=== PATIENT | male | born 1965 | race Hispanic/Latino ===

== ENCOUNTER → 2017-12-02 | Day surgery (SDC) | payer OTHER ==
[~2017-12-02] MED LIST: ACETAMINOPHEN 1000 MG/100 ML IV ONE; AMLODIPINE BESY10 MG PO; ATORVASTATIN CA20 MG PO; BACITRACIN 50,000 UNIT VIAL ONE; BUPIVACAINE HCL 0.5% INJ 30 ML VIAL INJ ONE; CEFAZOLIN SOD 2 GM/D5W 50ML 50 ML IV ONE; CYCLOBENZAPRINE10 MG PO; DEXAMETHASONE SOD PHOS INJ 4 MG/ML VIAL ONE; FENTANYL CITRATE/PF 100MCG/2 ML INJ ONE; KETOROLAC TROMETHAMINE 30 MG/ML VIAL ONE; LIDOCAINE HCL 2% LOCAL INJ 5 ML SDV VIAL INJ ONE; LORAZEPAM1 MG PO; MIDAZOLAM HCL 2 MG/2 ML VIAL ONE; ONDANSETRON HCL INJ 2 MG/ML VIAL ONE; PROPOFOL IV EMULSION 10 MG/ML 20 ML VIAL ONE; SEVOFLURANE INHAL SOLN 250 ML PEN BTL ONE
--- NOTE | 2017-12-04 12:06 | Operative Report ---
DATE OF PROCEDURE: December 02, 2017 PREOPERATIVE DIAGNOSIS: Right ankle Maisonneuve fracture. POSTOPERATIVE DIAGNOSIS: Right ankle Maisonneuve fracture. OPERATION/PROCEDURE PERFORMED: 1. Open reduction and internal fixation of a right medial malleolus fracture. 2. Closed reduction of the right syndesmosis. 3. Screw stabilization of right syndesmosis injury. QUALITY IMPROVEMENT COORDINATOR (RN): None. ANESTHESIA: General endotracheal intubation anesthesia. IV FLUIDS: Per the anesthesia record. BRIEF DESCRIPTION OF THE PATIENT'S OPERATIVE PROCEDURE: Mr. Patel was taken to the operating room and placed in supine position on the operating table. Following induction of general anesthesia as well as endotracheal intubation the patient's right lower extremity was examined under anesthesia. He was noted to have bruising and swelling involving the ankle joint. Fluoroscopic evaluation of the ankle joint demonstrated a displaced medial malleolus fracture. There was disruption of the ankle mortis and widening of the syndesmosis. The patient's lower extremity was prepped and draped in standard surgical fashion. The case was begun by creating incision over the medial aspect of the ankle joint. This incision was carried through the skin only. Blunt dissection was used through a deepened incision to the level of the medial malleolus. Saphenous vein was identified and protected with retraction. The fracture site was identified and cleaned. The fracture fragment was found to be quite small. The fracture was reduced and held in place with a fracture reduction clamp and a single 4.0 cannulated screw that was inserted from distal to proximal transfixing the fracture in its reduced position and providing compression across the fracture site. A window was made in the anterior capsule. Examination of the medial clear space demonstrated no penetration of the screw into the joint. There was no injury to the talus. The wound was copiously irrigated and closed in a multilayer fashion. Attention was then turned to the syndesmosis injury. The fibula was identified laterally and a Lamont was used to localize the tibial plafond was using fluoroscopy. An incision was then created over the fibula. A tenaculum clamp was used to reduce the syndesmosis and this was achieved while the foot was held in neutral dorsiflexion. The drill was used to create a channel for the implant and a single fully threaded cannulated screw was inserted from lateral to medial through the fibula into the tibia by compressing the syndesmosis compressing the ankle joint at the level of the syndesmosis. This resulted in narrowing of the ankle mortise and reestablishment of the normal anatomy. The position of the hardware was then checked using fluoroscopy and found to be appropriate. The lateral wound was also irrigated and closed in a multilayer fashion. Sterile dressings were applied as well as a well-padded 3-sided splint. The patient was awakened and taken to the post anesthesia care unit in stable condition. Job#: [id number]
== END | disposition home or self-care (01) ==
LOC: OR 05:51
PROVIDERS: ATTEND Specialist
DX: S82.861A Displaced Maisonneuve's fracture of right leg, initial encounter for closed fracture (principal); S93.431A Sprain of tibiofibular ligament of right ankle, initial encounter; M23.611 Other spontaneous disruption of anterior cruciate ligament of right knee; I10 Essential (primary) hypertension; E78.00 Pure hypercholesterolemia, unspecified; F41.9 Anxiety disorder, unspecified; F17.210 Nicotine dependence, cigarettes, uncomplicated; W01.198A Fall on same level from slipping, tripping and stumbling with subsequent striking against other object, initial encounter; Y92.003 Bedroom of unspecified non-institutional (private) residence as the place of occurrence of the external cause; Z01.810 Encounter for preprocedural cardiovascular examination; Z68.35 Body mass index [BMI] 35.0-35.9, adult
CPT/HCPCS: 27766; 27829; 76001; 93005; C1713 ×2; J1100; J1885; J2001; J2250; J2405

== ENCOUNTER → 2018-02-08 | Day surgery (SDC) | payer OTHER ==
[~2018-02-08] MED LIST changes: -ACETAMINOPHEN 1000 MG/100 ML IV ONE; +ASPIR 8181 MG PO
[2018-02-08 15:25] VITALS: BP 123/74
--- NOTE | 2018-02-14 14:30 | Operative Report ---
DATE OF PROCEDURE: February 08, 2018 PREOPERATIVE DIAGNOSIS: Symptomatic hardware, right ankle. POSTOPERATIVE DIAGNOSIS: Symptomatic hardware, right ankle. OPERATION/PROCEDURE PERFORMED: Patient underwent removal of a syndesmosis screw from the right ankle as well as removal of a medial malleolus screw from the right ankle. DIRECTOR OF BUSINESS SERVICES: There was no assistant food service director. ANESTHESIA: General endotracheal intubation anesthesia. IV FLUIDS: As per anesthesia record. BRIEF DESCRIPTION OF OPERATIVE PROCEDURE: Mr. Patel was taken to the operating room, placed in supine position on the operating table. Following induction of general anesthesia as well as endotracheal intubation, the patient's right lower extremity was examined under anesthesia. He was found to have well-healed incisions from a previous open reduction and internal fixation of a pronation eversion-type ankle fracture. The patient's lower extremity was prepped and draped in standard surgical fashion. The case was begun by removing the patient's syndesmosis screw. Incision was created through the previous scar overlying the lateral aspect of the ankle joint. This incision was carried through skin only. Blunt dissection was used to deepen the incision. The screw was easily identified overlying the fibula. The screw was removed under direct vision. The wound was copiously irrigated and fluoroscopic evaluation of the ankle joint confirmed removal of that screw. This wound was then closed in a multilayer fashion. The C-arm was then used to localize the screw over the medial malleolus. A [place] was placed against the soft tissues and a small incision was created along the medial surgical incision and blunt dissection was used to deepen the incision, again using fluoroscopy to help identify the position of the screw. The screw was easily identified and a screwdriver from the 4.0 cannulated screw system was used to remove the screw and washer from the medial aspect of the ankle. This area was again copiously irrigated. Fluoroscopic evaluation confirmed removal of that screw. The medial malleolus fracture was stable. The wound was copiously irrigated and closed in a multilayer fashion. Sterile dressings were applied and the patient was placed in a tib-fib orthosis, awakened, and taken to the postanesthesia care until in stable condition. Job#: [id number] VAS
== END | disposition home or self-care (01) ==
LOC: OR 09:27
PROVIDERS: ATTEND Specialist
DX: Z47.89 Encounter for other orthopedic aftercare (principal); S93.431D Sprain of tibiofibular ligament of right ankle, subsequent encounter; S82.51XD Displaced fracture of medial malleolus of right tibia, subsequent encounter for closed fracture with routine healing; I10 Essential (primary) hypertension; F41.9 Anxiety disorder, unspecified; Z90.49 Acquired absence of other specified parts of digestive tract
CPT/HCPCS: 20680; 76001; J1100; J1885; J2001; J2250; J2405

== ENCOUNTER 2018-03-09 13:00 | Outpatient (RCR) | payer OTHER ==
[~2018-03-09 13:00] MED LIST changes: -BACITRACIN 50,000 UNIT VIAL ONE; -BUPIVACAINE HCL 0.5% INJ 30 ML VIAL INJ ONE; -CEFAZOLIN SOD 2 GM/D5W 50ML 50 ML IV ONE; -DEXAMETHASONE SOD PHOS INJ 4 MG/ML VIAL ONE; -FENTANYL CITRATE/PF 100MCG/2 ML INJ ONE; -KETOROLAC TROMETHAMINE 30 MG/ML VIAL ONE; -LIDOCAINE HCL 2% LOCAL INJ 5 ML SDV VIAL INJ ONE; -MIDAZOLAM HCL 2 MG/2 ML VIAL ONE; -ONDANSETRON HCL INJ 2 MG/ML VIAL ONE; -PROPOFOL IV EMULSION 10 MG/ML 20 ML VIAL ONE; -SEVOFLURANE INHAL SOLN 250 ML PEN BTL ONE
== END 2018-03-12 ==
LOC: PT 13:00
PROVIDERS: ATTEND Specialist
DX: M84.371D Stress fracture, right ankle, subsequent encounter for fracture with routine healing (principal); M25.571 Pain in right ankle and joints of right foot; M25.561 Pain in right knee; M62.81 Muscle weakness (generalized); R26.2 Difficulty in walking, not elsewhere classified

== ENCOUNTER 2018-03-23 13:00 | Outpatient (RCR) | payer OTHER | END 2018-04-12 | LOC: PT 13:00 | PROVIDERS: ATTEND Specialist | DX: M84.371D Stress fracture, right ankle, subsequent encounter for fracture with routine healing (principal); M25.571 Pain in right ankle and joints of right foot; M25.561 Pain in right knee; M62.81 Muscle weakness (generalized); R26.2 Difficulty in walking, not elsewhere classified ==

== ENCOUNTER → 2019-08-17 | Outpatient (CLI) | payer BC ==
[~2019-08-17] MED LIST changes: +FLUCONAZOLE100 MG PO; +MILK THISTLE140 M1 PO; +MORINGA PO; +OMEPRAZOLE40 MG PO; +SIMVASTATIN20 MG PO
--- NOTE | 2019-08-17 11:37 | Diagnostic Imaging Report ---
Abdominal ultrasound. History: Alcohol use. Comparison: CT abdomen 10/19/2008. Discussion: Transverse and longitudinal images of the abdomen were obtained demonstrating a liver of normal size but diffusely increased echogenicity measuring 14.9 cm in length. The portal vein is patent with hepatopetal flow and is within normal limits measuring 10 mm in diameter. The biliary tree is within normal limits with the common bile duct measuring 3 mm in diameter. The gallbladder is absent. The kidneys are normal in size and echogenicity bilaterally without evidence of hydronephrosis, stones, or mass. The right kidney measures 10.1 cm and the left kidney measures 11.3 cm in length. The spleen is normal in size and appearance measuring 9.8 cm in length. The pancreas, aorta, and IVC were mostly obscured by overlying bowel gas. There is no evidence of free fluid. IMPRESSION: 1. Diffuse fatty infiltration of the liver without focal hepatic abnormality. 2. Status post cholecystectomy. Otherwise unremarkable abdominal ultrasound. Signed by: Piotr Jalloh on 08/17/2019 11:35 AM
== END ==
LOC: US 09:37
PROVIDERS: ATTEND Internal Medicine Gastroenterology
DX: F10.11 Alcohol abuse, in remission (principal); K76.0 Fatty (change of) liver, not elsewhere classified
CPT/HCPCS: 76700

== ENCOUNTER → 2019-08-18 | Day surgery (SDC) | payer BC ==
[~2019-08-18] MED LIST changes: +PROPOFOL IV EMULSION 10 MG/ML 50 ML VIAL ONE
--- OUTSIDE RECORDS SUMMARY | 2019-08-18 06:54 | XMS REPORT ---
Author Author [facility] Address Unknown Phone Unavailable Care Team Providers Care Ammunition Supervisor Name Role Phone SANDEEP REZA Unavailable Unavailable Problems This patient has no known problems. Allergies, Adverse Reactions, Alerts This patient has no known allergies or adverse reactions. Medications This patient has no known medications. Results Test Description Test Time Test Comments Text Results Atomic Results Result Comments US ABDOMEN COMPLETE 2019-08-17 11:33:00 [place] [address] Patient Name: LULI LÓPEZ MR #: [id number] : 1965 Age/Sex: 54/M Req #: [id number] Adm Physician: Ordered by: SANDEEP REZA MD Report #: [id number] Location: US Room/Bed: Procedure: [id number] US/US ABDOMEN COMPLETE Exam Date: 08/17/19 Exam Time: 1047 REPORT STATUS: Signed Abdominal ultrasound. History: Alcohol use. Comparison: CT abdomen 10/19/2008. Discussion: Transverse and longitudinal images of the abdomen were obtained demonstrating a liver of normal size but diffusely increased echogenicity measuring 14.9 cm in length. The portal vein is patent with hepatopetal flow and is within normal limits measuring 10 mm in diameter. The biliary tree is within normal limits with the common bile duct measuring 3 mm in diameter. The gallbladder is absent. The kidneys are normal in size and echogenicity bilaterally without evidence of hydronephrosis, stones, or mass. The right kidney measures 10.1 cm and the left kidney measures 11.3 cm in length. The spleen is normal in size and appearance measuring 9.8 cm in length. The pancreas, aorta, and IVC were mostly obscured by overlying bowel gas. There is no evidence of free fluid. IMPRESSION: 1. Diffuse fatty infiltration of the liver without focal hepatic abnormality. 2. Status post c holecystectomy. Otherwise unremarkable abdominal ultrasound. Signed by: Piotr Jalloh on 08/17/2019 11:35 AM Dictated By: PIOTR JALLOH MD [id number] Transcribed By: ISAEL on 08/17/19 1133 COPY TO: SANDEEP REZA MD
[2019-08-18 09:10] VITALS: BP 140/93
--- NOTE | 2019-08-18 11:02 | Operative Report ---
DATE OF PROCEDURE: 08/18/2019 SURGEON: Albert Thakur MD PROCEDURE: EGD with polypectomy, biopsies, and esophageal dilatation. INDICATIONS FOR EGD: Dysphagia, heartburn. MEDICATIONS: The patient was done under MAC, please see anesthesiologist's note. PROCEDURE IN DETAIL: With the patient in the left lateral decubitus position, a flexible fiberoptic Olympus gastroscope was introduced into the esophagus under direct visualization without any difficulty. There was some patchy erythema noted in distal esophagus. Mild stricture was noted at the GE junction that was dilated to size 52-[place] Pizarro. The scope was then advanced with ease into the stomach, traversing a moderate-sized hiatal hernia. Mucosa overlying the antrum and the body revealed some diffuse erythema and [id number] edema, and biopsies were obtained and sent to stain for H. pylori. Hyperplastic-appearing polyps were noted in the body and the and the fundus, and some were partially excised with the cold biopsy forceps. The pylorus appeared to be of normal contour and shape, was traversed with ease and the scope was advanced all the way to the second portion of the duodenum. Biopsies were obtained from the proximal second portion and duodenal bulb to rule out sprue. The scope was then withdrawn back into the stomach and retroflexed, mucosa overlying the fundus and the cardia grossly appeared to be within normal limits. The scope was then straightened out, it was subsequently withdrawn, and the patient tolerated the procedure well. IMPRESSION: 1. Distal esophagitis, mild. 2. Esophageal stricture, GE junction, dilated to size 52-D[place]ib[place] Pizarro. 3. Moderate-sized hiatal hernia. 4. Gastritis, biopsied, biopsies sent to stain for Helicobacter pylori. 5. Gastric polyps, hyperplastic-appearing, some partially excised with the cold biopsy forceps. 6. Rule out sprue. PLAN: Follow up histology. Increase omeprazole to 40 mg 1 p.o. before meals b.i.d. Albert Thakur MD [facility] /[id number] cc: Félix Hurley MD
== END | disposition home or self-care (01) ==
LOC: OR 05:55
PROVIDERS: ATTEND Internal Medicine Gastroenterology
DX: K22.2 Esophageal obstruction (principal); K31.7 Polyp of stomach and duodenum; K29.70 Gastritis, unspecified, without bleeding; K20.9 Esophagitis, unspecified; K44.9 Diaphragmatic hernia without obstruction or gangrene; K21.9 Gastro-esophageal reflux disease without esophagitis; I10 Essential (primary) hypertension; E78.5 Hyperlipidemia, unspecified; F41.9 Anxiety disorder, unspecified; F10.11 Alcohol abuse, in remission; Z01.810 Encounter for preprocedural cardiovascular examination; Z79.82 Long term (current) use of aspirin; Z68.33 Body mass index [BMI] 33.0-33.9, adult; Z86.19 Personal history of other infectious and parasitic diseases
CPT/HCPCS: 43239; 43450; 93005

== ENCOUNTER → 2019-08-21 | Outpatient (CLI) | payer BC ==
[~2019-08-21] MED LIST changes: +DIATRIZOATE MEGL/DIATRIZOA SOD 30 ML BTL PO ONE; +IOPAMIDOL 370 MG/ML 200 ML INFUS..BTL INJ ONE; -PROPOFOL IV EMULSION 10 MG/ML 50 ML VIAL ONE; +SODIUM CHLORIDE 0.9% 50ML 50 ML ONE
[2019-08-21 14:12] LABS: BLOOD UREA NITROGEN 14 mg/dL (7-26); BUN/CREATININE RATIO 15 (6-25); CREATININE, SERUM 0.96 mg/dL (0.72-1.25); EST GLOMERULAR FILTRATION RATE > 60 ML/MIN (60-)
--- NOTE | 2019-08-21 15:36 | Diagnostic Imaging Report ---
CT of the abdomen with contrast. History: Epigastric pain, gastritis. Comparison: CT abdomen/pelvis with contrast from 10/19/2008. Technique: Multidetector CT scanning of the abdomen was performed after intravenous and oral administration of contrast. Coronal and sagittal multiplanar reformations were obtained. RADIATION DOSE: Total DLP: 624.13 mGy*cm Dose modulation, iterative reconstruction, and/or weight based adjustment of the mA/kV was utilized to reduce the radiation dose to as low as reasonably achievable. FINDINGS: The visualized lungs are clear. The imaged portion of the heart demonstrates no significant abnormalities. The liver is normal in size but appears diffusely decreased in attenuation in comparison the spleen which can be seen in the setting of fatty infiltration. No focal hepatic abnormality is identified. The gallbladder is surgically absent. There is no biliary ductal dilatation. The stomach, spleen, pancreas, and bilateral adrenal glands are unremarkable. The kidneys are normal in size and location and enhance symmetrically. There is no evidence for hydronephrosis. The visualized portions of the ureters are normal in course and caliber. The partially visualized urinary bladder demonstrates no significant abnormalities. The abdominal aorta is normal course and caliber with atherosclerotic calcifications. The IVC is unremarkable. The visualized loops of small and large bowel within the abdomen demonstrate no evidence of obstruction or inflammation. Diverticula are noted within the sigmoid colon without evidence for acute diverticulitis. The appendix is visualized and appears unremarkable. There is no ascites or intraperitoneal free air. No abnormally enlarged lymph nodes are identified within the abdomen. The osseous demonstrate no evidence for acute fracture or destructive process. The extraperitoneal soft tissues are unremarkable. IMPRESSION: No acute abdominal process identified. CT findings suggestive of hepatic steatosis. Status post cholecystectomy. Diverticulosis coli without evidence for acute diverticulitis. Signed by: Dr. Karri Priest MD on 08/21/2019 3:33 PM
== END ==
LOC: CT 13:12
PROVIDERS: ATTEND Internal Medicine Gastroenterology
DX: K29.70 Gastritis, unspecified, without bleeding (principal)
CPT/HCPCS: 36415; 74160; 82565; 84520; Q9967